=== PATIENT | male | born 2000 | race Caucasian/White ===

== ENCOUNTER 2023-11-28 09:29 | Outpatient (RCR) | payer BC, SELFPAY ==
--- NOTE | 2023-11-28 09:01 | BH.SGPN.GN ---
Behaviors/Verbalizations/Mental Status: [] Pt casually dressed, motor activity appropriate, speech normal rate and tone, mood euthymic and anxious, congruent affect, thoughts linear and intact, no evidence of delusions or hallucinations. Per daily symptom tracker client identified a 4/5, with 5 being severe, for suicidal thoughts and a 0/5 for suicidal intention. [place] Suicide Severity Rating Scale was completed with client and lethality assessed this morning. Does not appear to be imminent risk to harm self or others. Client Response/Progress/Benefit: [] Client appeared to listen attentively to others and sharing openly with group. Per daily sympton tracker client reports 3/5 for anxiety and 1/5 for depression. Client reported mental health positive as showing up to IOP today for his first day. Client stated additional positive as starting to get back into working out which has been helpful for him in the past. Client stated current stressor is struggling with trying to decrease his nicotine use since he stopped taking his ADHD medications. Appeared to benefit from support from peers. Will continue IOP tx to improve daily functioning, increase healthy coping skills, and prevent decompensation.
--- NOTE | 2023-11-28 10:10 | BH.SGPN.GN ---
Behaviors/Verbalizations/Mental Status: [] Eye contact is good. Motor activity is appropriate. Appearance is casual. Speech is Appropriate. Mood is anxious. Affect is congruent. Thoughts are linear and logical. No evidence of psychosis. Client Response/Progress/Benefit: [] Pt participated at times. Attentive. Participated in and was engaged during experiential activity. Able to relate experiential activity to group topic of FOF. Engaged during interactive discussion on what failure means to the group in which peers identified and defined failure and Fear of Failure. Group was able to identify impact of fear of failure on mental health identifying that it can cause procrastination, avoidance, self-sabotage behaviors, etc. Attentive during interactive discussion on the impact that FOF can have on mental wellness, depression, anxiety, career, relationships, and growth. Benefited from increased awareness of how the role that FOF plays in mental health and decision-making. Will continue in IOP prevent decompensation, stabilize mood, and increase healthy coping. Narrative Note: []
--- NOTE | 2023-11-28 11:08 | BH.SGPN.GN ---
Behaviors/Verbalizations/Mental Status: []Pt alert and oriented, neatly dressed and groomed. Eye contact good. Motor activity appropriate. Speech within normal limits. Affect congruent, mood euthymic. Thoughts linear, logical, no signs of hallucinations or delusions. Client Response/Progress/Benefit: []Pt responded well to session, engaged in the experiential activity and attentive throughout group processing. Pt reported fear of failure has kept pt from personal development, healthy relationships, and self-gratification. Pt completed fear of failure worksheet and was able to identify thoughts and behaviors that reinforce personal fear of failure including negative people, unrealistic expectations, and negative self-talk. Pt participated in group discussion regarding strategies to overcome fear of failure. Identified wanting to work on using SMART goals. Appeared to benefit from increased knowledge of strategies to combat fear of failure and gaining self-awareness. Pt will continue IOP tx to prevent decompensation, improve daily functioning, and gain healthy coping skills. Narrative Note: []
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
--- NOTE | 2023-11-28 13:45 | BH.MTP ---
Master Treatment Plan Patient Information Program Physician:: Dr. Sil Nelson Primary Therapist:: Ileana PRICE Psychiatric Diagnoses Psychiatric Diagnoses:: Major depressive disorder, recurrent, severe without psychosis F 33.2; OCD; ADHD; Borderline personality disorder; Nicotine use disorder; marijuana use disorder; History of stimulant use disorder Diagnosis Code(s):: F 33.2 Estimated LOS Estimated LOS (in weeks):: 6 Problem/Goal #1 Problem/Goal #1 Stated Goal:: Pt will decrease depressive symptoms, hopelessness, worthlessness, negative self-talk, and suicidal ideations. Description of Barriers: Pt has history of erratic moods and inability to maintain employment due to his mental health symptoms. Pt has been there numerous hardships and trauma in his life. Pt does not have currently have a therapist and he has not responded well to medications in the past. Pt has limited supports and reports he knows coping skills, but has difficulty implementing them. Functional Impact: Pt is a 23 year-old male with history of OCD, ADHD, MDD, and BPD who was referred to [facility] by Dr. Jones due to I can't keep a job. Pt currently endorses a depressed mood, hopelessness, irritability, erratic moods, chronic SI, negative thoughts of self, and racing thoughts. Pt reports that his thoughts are always racing and I can never have peace. Pt also reports numbness and dissociation. Pt's symptoms are impacting his ability to maintain employment, his relationships, and his every day functioning. Goal Relevant Strengths/Supports: Pt's daughter is his biggest protective factor, pt has outpatient psychiatry, and his employer is accommodating. Objectives Objective #1: Stated Objective: Pt will learn and utilize 2-3 healthy coping strategies to better manage depressive symptoms and reduce frequency of SI as shown by a decrease of DMS-5 symptoms for depression. Interventions: Through group and individual sessions, therapist will help pt identify triggers and warning signs of depression and guilt including emotional, physical, and behavioral changes. Therapist will teach pt various coping skills to manage symptoms and give pt tangible resources to use to regulate emotions. Therapist will use cognitive restructuring techniques and help pt gain awareness of negative thoughts that reinforce guilt and depression. Therapist will provide psychoeducation on maintenance cycles and help pt learn ways to break unhealthy maintenance cycles. Therapist will help pt incorporate behavioral activation and assist pt in setting SMART goals. Discharge Criteria: Pt will have met this goal when can report learning and using at least 2 coping skills to manage depressive symptoms and reduce isolation. Additionally, pt will have met this goal when pt's DSM-5 scores for depression decrease. Target Date: 01/09/24 Review Date: 12/19/23 Status: open Objective #2: Stated Objective: Pt will identify 2 triggers and 2 coping skills to use when pt experiences mood dysregulation and has increased urges to engage in unhealthy, impulsive coping skills. Interventions: Through individual and group counseling pt will be provided with education on healthy coping skills to manage mood symptoms, impulse, and crisis behaviors. Therapist will provide information on healthy alternatives to emotion release. Individual therapist will teach pt DBT techniques to increase emotional regulation and mindfulness. Therapist will also engage pt to use self-compassion while working to change behaviors. Discharge Criteria: Pt will have accomplished this goal when pt can identify at least 2 triggers and 2 coping skills to increase mood stability and reduce unhealthy action urges. Target Date: 01/09/24 Review Date: 12/19/23 Status: open Problem/Goal #2 Problem/Goal #2 Stated Goal:: Will reduce anxiety and panic symptoms through increasing emotional regulation and distress tolerance skills. Description of Barriers: Pt has history of erratic moods and inability to maintain employment due to his mental health symptoms. Pt has been there numerous hardships and trauma in his life. Pt does not have currently have a therapist and he has not responded well to medications in the past. Pt has limited supports and reports he knows coping skills, but has difficulty implementing them. Functional Impact: Pt is a 23 year-old male with history of OCD, ADHD, MDD, and BPD who was referred to [facility] by Dr. Jones due to I can't keep a job. Pt currently endorses a depressed mood, hopelessness, irritability, erratic moods, chronic SI, negative thoughts of self, and racing thoughts. Pt reports that his thoughts are always racing and I can never have peace. Pt also reports numbness and dissociation. Pt's symptoms are impacting his ability to maintain employment, his relationships, and his every day functioning. Goal Relevant Strengths/Supports: Pt's daughter is his biggest protective factor, pt has outpatient psychiatry, and his employer is accommodating. Objectives Objective #1: Stated Objective: Pt will increase ability to manage stressors and anxiety by gaining 2-3 distress tolerance skills. Interventions: Through group and individual therapy, pt will learn various coping skills to help manage stress and anxiety. Therapist will utilize DBT distress tolerance skills to increase awareness and give pt tools to more effectively manage anxiety. Therapist will provide psychoeducation on emotional regulation and help pt identify unhealthy coping skills he wants to change. Discharge Criteria: Pt will have accomplished this goal when can report improved ability to manage stressors and identify at least 2 distress tolerance skills. Target Date: 01/09/24 Review Date: 12/19/23 Status: open Objective #2: Stated Objective: Pt will identify 2-3 anxiety and panic triggers and 2 coping skills to use when feeling anxious or overwhelmed to manage anxiety as shown by reducing DSM-5 scores for anxiety Interventions: Therapist will provide education on anxiety, avoidance behaviors, and maintenance cycles. Therapist will help pt explore personal symptoms and warning signs of anxiety and irritability. Therapist will teach pt coping skills to improve emotional regulation, mindfulness, and distress tolerance to help pt cope with anxiety in the moment. Discharge Criteria: Pt will have accomplished this goal when he can identify at least 2 triggers and report using 2 coping skills to manage anxiety and irritability. Additionally, pt will have accomplished this goal AEB reduction of DSM-5 scores for anxiety. Target Date: 01/09/24 Review Date: 12/19/23 Status: open
--- NOTE | 2023-11-28 13:57 | BH.COMM_ITS ---
Communication Note Communication with Client Communication Note: Met with pt to complete initial paperwork and administer the CSSR-S screening and risk assessment. Pt is high risk as pt reports chronic SI with history of self-harm and a self-aborted attempt in the past. Pt does have passive SI today, but does not have plan or intent. Pt states he has ?come close? to suicide attempts in the past, but he stops himself. Reports ability to maintain safety and does not have access to pills or weapons. Pt lives with his grandparents, and he reports he will not act on his thoughts because of his daughter. Discussed case with Dr. Nelson and pt will be admitted to [facility] tx with a diagnosis of MDD F33.2 Pt and therapist also discussed treatment goals and began the psychosocial assessment.
--- NOTE | 2023-11-30 10:30 | BH.NA ---
Physical Data Vital Signs Pulse Rate: 91 Blood Pressure: 138/85 Height/Weight Height: 1.78 m Weight:: 74.843 kg Weight in Pounds: 165.0 lbs Nutritional History Appetite Nutritional Instructions: Describe your appetite:: Good Additional nutritional information:: Client states he had lost weight while on Mydayis, but states he has gained some weight now that he has been off of it a few weeks. Client denies change in appetite. Functional Assessment Sleep Pattern Describe any problems with sleeping: Client states he sleeps about 6-8 hours. Sensory/Communication Assess Vision Problems Do you have any vision problems?: None (client has a hx of corrective eye muscle surgery, but states it failed. Client states his eyes don't work together and he only uses 1 eye at a time, so he usually has 1 eye closed.) Medical Problems/History Respiratory Conditions Respiratory: Asthma (history of activity asthma, does not have a rescue inhaler and states he hasn't needed one in years) Gastrointestinal Conditions Gastrointestinal: Other (See comments) (GERD) Musculoskeletal Conditions Musculoskeletal: Arthritis (mostly in hands/wrists) Pain Assessment Do you have acute or chronic pain?: Yes (some in joints from arthritis) Family History Family History Mother Alcoholism Osteoarthritis Liver cirrhosis Depression Anxiety Suicide attempt Irritable bowel Anemia Arthritis Kidney disease Father Hypertension Alcoholism Drug use Schizophrenia ADHD Anxiety Depression Arthritis Grandfather Diabetes Anxiety OCD (obsessive compulsive disorder) Brother Asthma Learning disabilities Grandmother Cancer ? ovarian Additional History Additional comments:: tinnitus in both ears, vision problems Surgical History Surgical History Have you had any surgeries? If so, list type and date:: Yes (eye, sinus) Substance Abuse Substance Abuse Please describe substance abuse in the last 30 days:: Client states he drinks occasionally socially, but states it is around once a month or so. Client states he used to smoke cigarettes and used to vape, but now he uses Zyn, a synthetic nicotine pouch that has sugar in it and dissolves in your mouth. Client states he smokes marijuana several times per day, but states he does use it less in a day than he used to. Client states it helps with his anxiety and helps him be more social with people. Client states he usually drinks 2 energy drinks per day or a pre-workout with caffeine on days he works out, about 300-400mg daily. Mental Status Summary Mental Status Significant Findings/Observations on Appearance and Mood:: Client is alert and oriented x 4. Client is casually groomed. Client is cooperative with assessment. Client wears sunglasses in group, but does take off sunglasses for assessment. Client states he only uses one eye at a time, so during assessment he alternates which of his eyes he closes. Client's voice has normal rate and volume. Client has an appropriate affect. Client makes logical associations and has normal processing. Client denies delusions/hallucinations. Client reports some passive SI, sometimes with thoughts of methods but states his daughter is a strong protective factor. Suicide Assessment Suicidal Ideation Are you currently or have you been suicidal in the past?: Yes Suicidal Intentional Rating Scale (SIRS): Current suicidal thoughts/No plan/Contracts for safety (passive SI several times per week) Physician Notification Past Psychiatric History MH Treatment Hx Past Psychiatric Medications:: Zoloft, Risperdal, Concerta, Vyvanse, Focalin Age of first mental health symptoms: Client states he has been on medications for his ADHD since age 5-6, and was on them consistently through school. Client recently stopped taking Mydayis. Client states he was diagnosed with OCD around age 9-10. Client was in therapy consistently from age 4 to around 14 when he states he started to refuse to go. Describe (age, circumstance, etc) any past hospitalizations: 2019 for SI. Client denies any suicide attempts in the past. Fall Risk Assessment Age Age: Less than 60 Mental Status Mental Status: Willing & able to ask for assistance when needed Physical Status Physical Status: No problems Impairments Impairments: None Elimination Elimination: Continent AND independent Gait or Balance Gait or Balance: Walks independently Hx of Falls History of falls in the past 6 months: No known history Medications/Substances Medications/substances used within the past 24 hours or ordered to administer: None of the medications/substances list above Total Score Total Points:: 0 RN Summary of Impressions Impressions Recommendations Impressions: Psychiatric Issues: 1. Major depressive disorder, recurrent, severe without psychosis 2. OCD 3. ADHD 4. Borderline personality disorder 5. Nicotine use disorder 6. marijuana use disorder 7. History of stimulant use disorder Level of Care How do the client's current symptoms and functional deficits support need for this level of care?: Client was referred to [facility] by outpatient psychiatry due to client's mental health. Client states he has not been able to keep a job, and states he has gotten mad at some of his jobs and just walked out on the spot. Client states he has visits with his 5 year old daughter on the weekends, but states he feels like sometimes he's just going through the motions with her trying to be a better dad than I have. Client states I think my BPD makes it hard for me to have a relationship with her sometimes. Client states he's trying to feel more of a connection with her, and states he thinks this is improving. Client reports racing thoughts at times and anhedonia. Client does have passive SI at times, and sometimes has thoughts of methods (thoughts of hanging himself with a rope he found in the basement, thoughts of crashing his car when driving) but states his daughter is a strong protective factor. IOP will promote gains and prevent further decompensation while providing social support and skills training.
[2023-11-30 11:00] VITALS: BP 138/85; PULSE 91
--- NOTE | 2023-11-30 11:10 | BH.SGPN.GN ---
Behaviors/Verbalizations/Mental Status: [] Client alert and oriented, casually dressed and groomed. Eye contact could not be assessed due to client wearing sunglasses. Motor activity appropriate. Speech within normal limits. Affect constricted, mood anxious. Thoughts linear, logical, no signs of hallucinations or delusions. Client Response/Progress/Benefit: [] Client responded well to session, engaged and taking notes throughout. Worked with group to connect components of the experiential activity with characteristics of healthy and unhealthy relationships. Attentive during psychoeducation about characteristics of healthy, unhealthy, and abusive relationships. Client reported he would like to continue to improve with trusting self and others as a way to improve relationships. Appeared to benefit from identifying current healthy relationship attributes and an area client wants to work on to build healthier relationships. Client to continue IOP to increase healthy coping skills, challenge distortions, and prevent decompensation.
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
--- NOTE | 2023-11-30 12:38 | BH.DR.ITP ---
Initial Treatment Plan Patient Information Visit Information: ADMISSION DATE: EXPECTED LOS: 4-6 weeks Problems/Symptoms Problem #1:: Depression Symptom:: Sadness, hopelessness, guilt, anhedonia, disruption of sleep, low energy, decreased concentration, passive thoughts of , passive, fleeting suicidal ideation Problem #2:: Anxiety Symptom:: Worry, rumination, avoidance
--- NOTE | 2023-12-01 10:10 | BH.SGPN.GN ---
Behaviors/Verbalizations/Mental Status: []Pt alert and oriented, casually dressed and groomed. Eye contact good. Motor activity appropriate. Speech within normal limits. Affect congruent, mood depressed and anxious. Thoughts linear, logical, no signs of hallucinations or delusions. Client Response/Progress/Benefit: [] Pt was an active?participant in group discussion identifying benefits of healthy relationships which included improved connections, accountability, and personal growth. Group identified factors that lead to unhealthy relationships. Pt?s personal factors included poor communication, irritability, and poor mental health. Actively participated in group experiential activity and expressed ideas to group. Benefited from increased insight and awareness of benefits of healthy relationships and factors that contribute to unhealthy relationships. Will continue IOP tx to promote mood stability, increase self-care practices, and improve daily functioning. Narrative Note: []
--- NOTE | 2023-12-06 10:15 | BH.SGPN.GN ---
Behaviors/Verbalizations/Mental Status: []Eye contact is good. Motor activity is appropriate. Appearance is casual. Speech is Appropriate. Mood is euthymic. Affect is congruent. Thoughts are linear and logical. No evidence of psychosis. Client Response/Progress/Benefit: [] Pt was actively engaged, providing input at times, and taking notes throughout session. Connected with the topic of pitfalls and listened to group discussion on internal and external barriers that prevent from choosing a healthier path to mental wellness. Group worked together to identify examples of personal internal pitfalls and pt identified theirs as using unhealthy coping skills, lashing out, and all or nothing thinking. Pt benefited from group as pt learned to better identify and normalize potential barriers to improving mental health symptoms. Pt also gained awareness of the difference between external triggers and self-sabotaging behaviors. Will continue in IOP to prevent decompensation, improve daily functioning, and increase distress tolerance skills. Narrative Note: []
--- NOTE | 2023-12-06 11:15 | BH.SGPN.GN ---
Behaviors/Verbalizations/Mental Status: []Pt alert and oriented, casually dressed and groomed. Eye contact good. Motor activity appropriate. Speech within normal limits. Affect congruent, mood euthymic. Thoughts linear, logical, no signs of hallucinations or delusions. Client Response/Progress/Benefit: [] Pt receptive of session, engaged throughout AEB actively contributing and listening to discussion, as well as taking notes. Pt participated in the experiential activity and processed with group how their emotions, perspective, and reactions positively and negatively impacted the outcome. Pt identified pitfalls they struggle with and shared wanting to work on pitfall of lack of negative self-talk by practicing reflecting on progress and identifying small positives daily. Benefited from identifying personal pitfalls and strategies to overcome these pitfalls. Will continue IOP tx to prevent decompensation, further improve daily functioning and mood stability, and promote application of healthy coping skills. Narrative Note: []
--- NOTE | 2023-12-06 11:37 | BH.MDN ---
Multi-Disciplinary Note Note 45-min Individual: Time Started:: 09:15 Date: 12/06/23 Purpose of session/treatment goals addressed:: To gather information on pt's current stressors, symptoms, triggers, history, and tx goals. Another goal was to teach pt about dialectical thinking to combat distortions and regulate strong emotions. Eye Contact:: Fair (wearing sunglasses) Motor Activity:: Appropriate Appearance:: Neat Speech:: Appropriate Mood:: Irritable, Depressed and Other (motivated and more hopeful by the end of session.) Affect:: Constricted Thoughts:: Racing and No evidence of hallucinations/delusions noted Staff Interventions:: thought challenging, CBT techniques, mindfulness skills, rapport building, strengths perspective and taught coping skills (dialectical thinking) Client Response:: Pt responded well to session, open to meeting with therapist. Pt reported that he canceled last week because he could not bring himself to get out of bed which pt shared feels like that's happening more and more. Pt stated he is feeling depressed, hopeless, and angry this morning. Pt did not identify a specific trigger, but pt shared most of these feelings are geared toward work and the world being shitty. Pt talked about how he wants to make a difference in the world and when he has the motivation, he feels this is possible. However, when pt's mood is depressed, pt feels that there is nothing that can be done to make the world better, so why try. This leads pt to isolate, quit jobs, and self-destruct. Pt responded well to validation from therapist and thought challenging. Pt appeared to benefit from the skill of dialectical thinking to help pt find the michael in life and combat all or nothing beliefs and thoughts. Pt was able to make connections that he will not change the entire world and he can change his part of the world. Pt gained insight on how this can be done; through actions, kindness, etc. Pt also responded well to discussion on focusing on the temporary. Pt has not enjoyed any of his jobs as pt feels his virtues do not align, so pt can temporarily work at a job he does not enjoy while working towards finding something he enjoys more. Discussed pt's other values/virtues and how these can aid pt in his mental health journey. Pt shared today it would be helpful to go to the store and get his car scraped. Pt also feels he can benefit from spending time with his family instead of isolating. By the end of session pt was smiling and noted he felt motivated. Risks/Concerns:: Pt denies any active SI, plan, or intent. Pt is more irritable today and hopeless, but by the end of session pt reported feeling better. Progress Toward Goals/Plan:: Pt is starting the second week of IOP tx. Pt admits that he canceled last week once due to depressive symptoms. Today pt endorses hopelessness and irritability that pt did not report last week. Pt's mood did shift during session and he reported feeling more motivated. Pt shared that he has a lot of knowledge about coping skills, but he struggles with applying the skills. Will continue IOP tx to prevent decompensation, improve distress tolerance skills, and improve daily functioning. Time Stopped:: 10:00
--- NOTE | 2023-12-08 09:01 | BH.SGPN.GN ---
Behaviors/Verbalizations/Mental Status: [] Eye contact is unable to be assessed due to client wearing sunglasses. Motor activity is appropriate. Appearance is casual. Speech is Appropriate. Mood is euthymic. Affect is congruent. Thoughts are linear and logical. No evidence of psychosis. Reviewed daily check in sheet and no reports of suicidal ideations or intent. Client Response/Progress/Benefit: [] Pt was an engaged participant in group discussion. Attentive. Pt reported mental health positive as working out this morning which tends to make him feel better. Pt stated additional positive as starting to improve balance between daily routine and structure. Pt shared he got a large calendar to post up that he can write down his plan each week, including chores. Pt stated ongoing stressor as needing to make decision about what he wants to do about his eyes. Stated he could have surgery to fix his lazy eye, but there are possible complications that would be similar to what he is alerady experiencing. Seemed to benefit from support from peers. Pt to continue IOP to promote healthy coping, improve distress tolerance, and prevent decompensation.
--- NOTE | 2023-12-08 11:15 | BH.SGPN.GN ---
Behaviors/Verbalizations/Mental Status: [] Eye contact is good. Motor activity is appropriate. Appearance is casual. Speech is Appropriate. Mood is content. Affect is congruent. Thoughts are linear and logical. No evidence of psychosis. Client Response/Progress/Benefit: [] Pt was an active participant in group discussions and activity. Engaged with peers in activity and identifying healthy ways to approach each conflict scenario. Group discussed various conflict resolution skills that can be useful in addressing conflict outside of IOP. Benefited from practicing and learning conflict resolution skills during group activity. Able to identify areas pt wants to work on to improve how pt manages conflict both internally and externally. Expressed wanting to work on taking a time-out if becoming heated when addressing external conflict. Will continue in IOP to stabilize mood, improve functioning in daily life, and prevent decompensation. Narrative Note: []
--- NOTE | 2023-12-09 10:10 | BH.SGPN.GN ---
Behaviors/Verbalizations/Mental Status: [] Eye contact is good. Motor activity is appropriate. Appearance is casual. Speech is Appropriate. Mood is euthymic. Affect is full. Thoughts are linear and logical. No evidence of psychosis. Client Response/Progress/Benefit: [] Pt an active participant in group discussions. Participated during interactive discussion on defining conflict (internal/external) and possible benefits to conflict. Attentive during psychoeducation on conflict styles (Avoidant, Accommodating, Competing, Cooperative) and engaged during interactive discussion in which peers identified the benefits and consequences to each conflict style. Pt identified their primary conflict style as competing. Benefited from increased awareness of the impact of conflict styles in mental health. Will continue in IOP tx to prevent decompensation, stabilize mood, and improve functioning to return to work. . Narrative Note: []
== END 2023-12-09 23:59 ==
LOC: BHIOP 09:29
PROVIDERS: PCP Internal Medicine; Referring Provider Psychiatry & Neurology Psychiatry; Visit Provider Psychiatry & Neurology Psychiatry
DX: F33.1 Major depressive disorder, recurrent, moderate (principal); F42.9 Obsessive-compulsive disorder, unspecified; F90.9 Attention-deficit hyperactivity disorder, unspecified type; F60.3 Borderline personality disorder; F17.210 Nicotine dependence, cigarettes, uncomplicated; F12.90 Cannabis use, unspecified, uncomplicated; Z79.899 Other long term (current) drug therapy
CPT/HCPCS: S9480; 90834; 90853

== ENCOUNTER 2023-12-12 08:12 | Outpatient (RCR) | payer BC, SELFPAY ==
[2023-12-10 02:40] VITALS: BP 138/85; PULSE 91
--- NOTE | 2023-12-13 09:00 | BH.SGPN.GN ---
Behaviors/Verbalizations/Mental Status: [] Eye contact good. Motor activity appropriate. Speech within normal limits. Affect congruent, mood content. Thoughts linear, logical, no signs of hallucinations or delusions. Reviewed client?s symptom tracker, denies SI, plan, or intent as of 12/13/2023. Client Response/Progress/Benefit: [] Client receptive of session, attentive and willing to process with group. Identified mental health ?wins? today as making an intentional effort to get here today despite wanting to remain in bed. Reports using opposite action and reminding himself of the benefits of coming. Additional win noted as spending time playing with his daughter over the weekend and being present while doing so. Reports that quality time with her often improves his mood and reminds him to practice daily gratitude. Current stressor noted as ongoing issues with pain associate with pt's arthritis. Did well to identify strategies he can use to accept and ease his pain today. Receptive of and appearing to benefit from supportive feedback and suggestions provided by the group. Recommended continued IOP tx to continue to improve mood stability, promote consistency of skill application and emotion regulation, as well as prevent decompensation. Narrative Note: []
--- NOTE | 2023-12-13 10:00 | BH.SGPN.GN ---
Behaviors/Verbalizations/Mental Status: [] Eye contact is good. Motor activity is appropriate. Appearance is casual. Speech is Appropriate. Mood is anxious. Affect is congruent. Thoughts are linear and logical. No evidence of psychosis. Client Response/Progress/Benefit: [] Pt was an active participant in group discussions. Attentive during psychoeducation on the 4 communication styles (Passive, Passive-Aggressive, Aggressive, and Assertive) and the obstacles to effective communication. Contributed during interactive discussion on the benefits of communicating effectively. Along with peers participated during interactive discussion in which they identified the benefits and disadvantages to the different communication styles. Benefited from increased understanding of communication styles and how these can impact effective communication. Will continue in IOP to prevent decompensation, improve mood stability, and improve functioning to return to work.
--- NOTE | 2023-12-13 11:05 | BH.SGPN.GN ---
Behaviors/Verbalizations/Mental Status: []Pt alert and oriented, casually dressed. Eye contact good. Motor activity appropriate. Speech within normal limits. Affect congruent, mood euthymic. Thoughts linear, logical, no signs of hallucinations or delusions. Client Response/Progress/Benefit: [] Pt responded well to session AEB Pt listening attentively to others and providing input during group discussion on the pay offs and costs of the different communication styles. Pt able to connect how current communication style impacts mental health. Connected with peers? comments about importance of using assertive communication. Pt did well being assertive in the group activity and practiced using assertive communication in the role playing scenarios. Pt stated the scenarios were good practice because he can sometimes come off too aggressive to others. Recognizes he needs to be mindful how he is communicating when trying to be assertive.?Pt seemed to benefit from increasing awareness of healthy strategies to improve communication. Will continue IOP tx to challenge distortions, improve emotion regulation, and prevent decompensation.
--- NOTE | 2023-12-14 09:05 | BH.SGPN.GN ---
Behaviors/Verbalizations/Mental Status: [] Pt alert and oriented, neatly dressed and groomed. Eye contact good. Motor activity appropriate. Speech tangential. Affect congruent, mood euthymic. Thoughts linear, logical, no signs of hallucinations or delusions. Reviewed pt?s symptom tracker, no risk for suicidal ideation, plan, or intent 12/14/23 Client Response/Progress/Benefit: []Pt responded well to session, attentive and engaged. Pt reports feeling mixed this morning as pt has many mental health wins, but he also has a major stressor. Pt shared his wins today as getting to IOP, working out this morning, and being consistent with his protein intake and food plan. Pt's stressor today is that pt recently found out his brother who struggles with addiction recently overdosed again. Pt stated his brother is alive, but in the hospital and pt feels frustrated because he does this all the time. The group offered support and reinforced boundaries. Pt appeared to benefit from receiving supportive statements from peers. Pt will continue IOP tx to promote mood stability, increase emotional regulation skills, and improve daily functioning. Narrative Note: []
--- NOTE | 2023-12-14 10:15 | BH.SGPN.GN ---
Behaviors/Verbalizations/Mental Status: [] Eye contact is good. Motor activity is appropriate. Appearance is casual. Speech is Appropriate. Mood is anxious and content. Affect is congruent. Thoughts are linear and logical. No evidence of psychosis. Client Response/Progress/Benefit: [] Pt receptive of session, actively engaged throughout AEB taking notes, providing input, and contributing in small group discussion. Appeared to connect with group topic of automatic thoughts and cognitive distortions and the impact of thought patterns on mental health, coping behaviors, and relationships. This particular group is very heavy on psychoeducation and pt appeared to connect with distortions and how they can impact functioning. Identified struggling with All or nothing and jumping to conclusions distortions. Pt appeared to benefit from gaining insight on distorted thinking patterns and how this impacts overall mental health. Will continue IOP to stabilize mood, improve distress tolerance, and prevent decompensation. Narrative Note: []
--- NOTE | 2023-12-14 12:05 | PCM.BH.PN_ITS ---
Progress Note Progress Note: History of Present Illness/Interim History: The patient is a 23-year-old single male with a history of OCD, depression, borderline personality disorder, ADHD who is seen in follow-up at the [facility] behavioral health [facility]. I last saw the patient 2 weeks ago and at that time he refused any medication. The patient feels he is really benefiting from the groups at the [facility] and feels that he is improving. He continues to struggle with his purpose in life and with working at his job. Patient states that his mood is less depressed and he feels more motivated lately. He denies any hopelessness. He has decreased his energy drink use to one half can a day only now. He hopes to eliminate them soon. He has decreased his nicotine use down to 5 pouches a day instead of 5-8 pouches and is trying not to use them in the evening. He is to decrease his marijuana use to the point where he still uses marijuana daily but sometimes its only in the evening instead of being high all the time. He still has occasional sadness but denies hopelessness. He continues to try to exercise regularly. He denies any passive thoughts of or suicidal ideation in the past week or 2 except for 1 moment of fleeting, passive suicidal ideation 10 days ago. He is again states that his daughter is protective from him attempting suicide. He denies active suicidal ideation, plan for suicide, homicidal ideation, hallucinations or delusions. Current Psychiatric Medications: [] The patient stopped his stimulant medication (Mydayis ER) and is not interested in any medication treatment. Mental Status Examination: [] Patient is a 23-year-old male who appears normal for stated age and is casually dressed and groomed with good hygiene. He is seen wearing sunglasses as he has double vision and has to squint in order to see clearly and is embarrassed by this. He is ambulatory with a normal gait and has no psychomotor agitation or retardation. He is cooperative and pleasant during the interview. Eye contact is good as much as can be seen with sunglasses and speech is normal rate and rhythm and fluent with no pressure. Mood is moderately depressed. Affect is mildly constricted. Thought process is goal-directed and less overinclusive than the prior interview. Thought content: There is no evidence of passive thoughts of , suicidal ideation, plan for suicide, homicidal ideation, hallucinations, delusions. There is evidence of chronic mistrust of girlfriends and coworkers still. Reality testing is intact. Judgment is intact. Insight: Limited but improving. Diagnoses: [] 1. Major depressive disorder, recurrent, moderate 2. OCD 3. ADHD 4. Borderline personality disorder 5. Nicotine use disorder 6. Marijuana use disorder 7. History of stimulant use disorder Plan: [] The patient will continue the IOP in behavioral health as the struc ture, support, education and group therapy will hopefully prevent worsening of the patient's symptoms which could require hospitalization. He felt safe during the interview and if it anytime he does not feel safe he agrees to let us know or go to the emergency room. The patient still refuses to take any medications. He also refuses to get his blood work as he has not obtained it and wants to cancel it. He does agree to continue to attempt to decrease his nicotine use, decrease his marijuana use and decreasing eliminate his caffeine use. He will continue to follow-up with his outpatient providers and I will see the patient in follow-up while he is in the IOP program.
--- NOTE | 2023-12-19 09:00 | BH.SGPN.GN ---
Behaviors/Verbalizations/Mental Status: [] Client alert and oriented, casual appearance. Eye could not be assessed as client was wearing sunglasses. Motor activity appropriate. Speech within normal limits. Affect congruent, mood euthymic. Thoughts linear, logical, no signs of hallucinations or delusions. Reviewed client?s symptom tracker, no risk for suicidal ideation, plan, or intent. Client Response/Progress/Benefit: [] Client responded well to session AEB listening to others and sharing thoughts/feelings. Client stated mental health positive as showing up to IOP today. Client reported additional mental health positive as keeping up with his workouts even when not feeling up to it. Client stated current stressor is only getting three hours of sleep last night. Client reported his sleep tends to be a struggle for him due to his history of being on various kinds of work shifts that got him accustomed to staying up late. Appeared to benefit from support from peers. Will continue IOP tx to promote use of healthy coping skills, improve distress tolerance, and prevent decompensation.
--- NOTE | 2023-12-19 10:10 | BH.SGPN.GN ---
Behaviors/Verbalizations/Mental Status: [] Eye contact is good. Motor activity is appropriate. Appearance is casual. Speech is Appropriate. Mood is content. Affect is congruent. Thoughts are linear and logical. No evidence of psychosis. Client Response/Progress/Benefit: [] Pt receptive to session AEB contributing to group discussion, as well as listening attentively to others, and taking notes. Worked with group to brainstorm the positive and negative aspects of stress on physical and mental health as well as the impact of distress on performance, relationships, and mental health. Pt shared their top stressors to be: parenting, finances, returning to work, and self-image issues. Shared when feeling overwhelmed with stress they tend to shut down, freeze, and lash out. Benefited from increased awareness of positive and negative stress as well as how stress impacts mental health and relationships. Will continue in IOP to promote utilization of distress tolerance skills, improve emotion regulation and positive view of self, and prevent decompensation. Narrative Note: []
--- NOTE | 2023-12-19 11:10 | BH.SGPN.GN ---
Behaviors/Verbalizations/Mental Status: []Pt alert and oriented, casually dressed and groomed. Eye contact good. Motor activity appropriate. Speech within normal limits. Affect congruent, mood euthymic. Thoughts linear, logical, no signs of hallucinations or delusions. Client Response/Progress/Benefit: [] Pt was an active participant in group discussions and experiential activity. Attentive during psychoeducation on the 4 A's (Avoid, adapt, alter, accept) of coping with stress. Pt wants to work on altering his perspective towards stressors and adapting his expectations. Was able to identify the connection between the experiential activity and utilization of stress management skills. Benefited from increased awareness of stress management strategies. Pt will continue IOP tx to promote mood stability, increase distress tolerance skills, and improve work-related functioning. Narrative Note: []
--- NOTE | 2023-12-19 13:20 | BH.MDN_ITS ---
Multi-Disciplinary Note Note 30-min Individual: Time Started:: 12:10 Date: 12/19/23 Purpose of session/treatment goals addressed:: To discuss progress, return to work, and set goals for today. Eye Contact:: Good (wears sunglasses) Motor Activity:: Appropriate Appearance:: Neat Speech:: Appropriate and Rambling Mood:: Euthymic Affect:: Full Thoughts:: Racing and No evidence of hallucinations/delusions noted Staff Interventions:: thought challenging, CBT techniques, mindfulness skills, strengths perspective, goal setting and other (discussed returning to work on a reduced schedule.) Client Response:: Pt responded well to session, open to meeting with therapist. Pt reports he has been noticing a difference in his perspective in a positive way. Pt shared after having the individual session where pt was highly agitated, pt felt he took what was talked about and applied it. Pt shared he has been isolating less and trying to engage more with his grandparents which has been positive. Pt also had his daughter this weekend and he reports feeling tiffany again while spending time with her. Pt is looking forward to things again including his sister coming to visit and returning to work. Pt reports the biggest change has been his thought challenging. Pt continues to smoke marijuana daily and he has ongoing sleep issues. Pt reports belief that his sleep hygiene is good and he feels he can function on less than 8 hours of sleep. However, pt also shared that in the past his lack of sleep has led to decompensation and burnout at work. Pt encouraged to practice calming skills at night as pt currently does not. Pt also encouraged to keep up with exercise, spending time with family, and challenging his perspective. Risks/Concerns:: Pt denies any suicidal ideations, plan, or intent as of 12/19/23. Pt reports on the DSM-5 that he has not have suicidal ideations in the last two weeks. Progress Toward Goals/Plan:: Pt is making progress towards his tx goals AEB pt's DSM-5 scores reducing by 28% since admission. Pt's depressive has decreased by 71% since admission and SI has decreased by 100%. Pt shared he sees progress in his perspective becoming more positive about work and his improved relationship with his grandparents. Pt wants to continue working on reducing negative thinking, improving his emotional regulation, and continuing to improve functioning. Pt will continue IOP tx to promote mood stability, improve work- related functioning, and increase emotional regulation skills. Time Stopped:: 12:45
--- NOTE | 2023-12-19 13:45 | BH.TPR ---
Treatment Plan Review Demographics Date of Admission:: 11/28/23 Date of Treatment Plan Review:: 12/19/23 Admitting Diagnoses:: Major depressive disorder, recurrent, severe without psychosis F 33.2; OCD; ADHD; Borderline personality disorder; Nicotine use disorder; marijuana use disorder; History of stimulant use disorder Current Diagnoses:: Major depressive disorder, recurrent, severe without psychosis F 33.2; OCD; ADHD; Borderline personality disorder; Nicotine use disorder; marijuana use disorder; History of stimulant use disorder Patient Status Patient's Response to Treatment:: Pt has responded well to session AEB consistently attending IOP and engaging in both individual and group therapy sessions. Pt is receptive to challenging distortions and reports applying skills outside of IOP. Pt contributes during group discussions, takes notes, appears to listen to others, and engages in group activities. Pt does overshare at times during group, but overall he is a good participant. Pt's overall DSM-5 scores have decreased by 28% since admission. Status of Current Problems and Symptoms: Pt's symptoms of depression and anxiety are resolving, but pt still reports mood instability with fear that he will not be able to maintain progress. Pt's biggest stressor right now is sleep, anxiety and mood instability, and lack of social support. Pt's brother was also recently hospitalized due to an overdose and this is a stressor for pt. Progress Problem #1: Problem Name:: Depression, SI, and hopelessness. Status of Goals:: Objective 1-complete with ongoing work encouraged. Pt?s DSM-5 scores for depression have decreased by 71% and pt?s SI has decreased by 100% since admission. Pt reports improved mood and actively challenging his perspective. Objective 2-in progress. Pt reports less impulse reactions, but pt is also not in a highly stressful environment as pt is off work. Team Recommendations:: Team recommends continued goals and objectives to reinforce skills and maintain gains made. Team recommends pt continue working on combating distortions, being more self-compassionate, and setting realistic goals to prevent burnout. Problem #2: Problem Name:: Anxiety, panic, and low distress tolerance. Status of Goals:: Objective 1-in progress. See objective 2 above. Pt is managing emotions well currently and will continue to benefit from IOP as pt returns to work part-time starting in the next few weeks. Objective 2- complete with ongoing work encouraged. Pt?s DSM-5 scores for anxiety reduced by 22% since admission. Pt is still reporting moderate anxiety daily. Pt shared ?it feels like I have one good day one bad day. Team Recommendations:: Treatment team encourages pt to continue working on distress tolerance skills and delaying his responses before reacting. Pt also encouraged to increase his social activities and practice healthy sleep hygiene skills.
--- NOTE | 2023-12-21 09:03 | BH.SGPN.GN ---
Behaviors/Verbalizations/Mental Status: [] Eye contact good. Motor activity appropriate. Speech within normal limits. Affect congruent, mood euthymic. Thoughts linear, logical, no signs of hallucinations or delusions. Reviewed client?s symptom tracker, denies SI, plan, or intent as of 12/21/2023. Client Response/Progress/Benefit: [] Client receptive of session, attentive and willing to process with group. Identified mental health ?wins? today as making plans with his grandfather to buy his old car as client's car has been having issues. Reports feeling excited as well about his sister planning to visit this weekend from [place]. Reports this will be nice for the family to get together as it has been awhile. Client noted his current stressor is also a win as he is quitting nicotine and is proud of the progress he has made but that this has been stressful at times. Receptive of and appearing to benefit from supportive feedback and suggestions provided by the group. Recommended continued IOP tx to continue to improve mood stability, promote consistency of skill application and thought challenging, as well as prevent decompensation. Narrative Note: []
--- NOTE | 2023-12-21 10:15 | BH.SGPN.GN ---
Behaviors/Verbalizations/Mental Status: []Patient was alert and oriented, casually dressed and groomed. Eye contact was fair, motor activity normal, speech tangential. Affect congruent. mood euthymic. Thoughts linear, logical, no signs of hallucinations or delusion Client Response/Progress/Benefit: [] Pt participated in the group discussions AEB providing input and taking notes. Attentive during psychoeducation Goal Setting. Participated during the discussion on common barriers which the group identified as: lack of motivation, not knowing where to start, not feeling good enough, and lack of support. Group also identified benefits sense of purpose, improved self-confidence, more motivation for other goals, and improved mental health. Benefited from increased awareness of mental health benefits of goals as well as psychoeducation on SMART goal criteria. Will continue in IOP to improve mood stability, increase emotional regulation skills, and reduce impulsivity. Narrative Note: []
--- NOTE | 2023-12-21 11:15 | BH.SGPN.GN ---
Behaviors/Verbalizations/Mental Status: []Pt alert and oriented, casually dressed and groomed. Eye contact could not be assessed as client is wearing sunglasses during session. Motor activity appropriate. Speech within normal limits. Affect congruent, mood euthymic. Thoughts linear, logical, no signs of hallucinations or delusions. Client Response/Progress/Benefit: [] Pt was engaged during discussion and willing to complete the worksheet challenging them to develop a personal SMART goal. Pt chose the goal of maintaining a positive mind when returns to work. Pt stated this will help him retain employment. Pt stated potential barriers include: depression, exhaustion, self-image, and anxiety. Identified solutions as engaging in small self-care activities, grounding skills, and hanging out with friends and family. Benefited from this group by developing a short-term SMART goal related to mental health. Will continue IOP tx to continue working on distress tolerance, improve thought patterns, and prevent decompensation.
--- NOTE | 2023-12-30 11:58 | BH.COMM ---
Communication Note Communication with Client Communication Note: Pt cancelled his scheduled IOP group and individual session today and did not make it in for group this week. Pt recently went back to work part-time and pt shared he has been having difficulty getting to sleep. Pt and therapist will discuss attendance and plan of care next week when pt returns.
--- NOTE | 2024-01-05 10:33 | BH.COMM_ITS ---
Communication Note Communication with Client Communication Note: Pt no called/no showed for his IOP group and individual sessions today. Pt had called earlier this week to schedule for today and tomorrow. However, pt has not been to [facility] since 12/21/23 which was prior to going back to work part-time. Pt was reminded of the [facility] attendance policy last week when he cancelled his sessions and will be discharged at this time.
--- NOTE | 2024-01-05 10:37 | BH.DS ---
Discharge Summary Demographics Date of Admission:: 11/28/23 Discharge Date: 01/05/24 Presenting Problems at Admission:: Pt is a 23 year-old male with history of OCD, ADHD, MDD, and BPD who was referred to [facility] by Dr. Jones due to I can't keep a job. Pt currently endorses a depressed mood, hopelessness, irritability, erratic moods, chronic SI, negative thoughts of self, and racing thoughts. Pt reports that his thoughts are always racing and I can never have peace. Pt also reports numbness and dissociation. Pt's symptoms are impacting his ability to maintain employment, his relationships, and his every day functioning. Discharge Diagnoses:: Major depressive disorder, recurrent, severe without psychosis F 33.2; OCD; ADHD; Borderline personality disorder; Nicotine use disorder; marijuana use disorder; History of stimulant use disorder Reason for Discharge:: Pt had numerous cancelations resulting in discharge from [facility] for not adhering to the attendance policy. Treatment Progress During Treatment & Response: Pt discharged prior to completing [facility], so there is no DSM-5 data to compare pt's admission scores to discharge scores. However, at review, pt's depression and SI had decreased significantly (see treatment plan review). Pt's attendance had been mostly consistent, but then pt began canceling and pt had two weeks where he did not show to [facility] due to cancelations. When pt was at [facility] he was engaged and interacted with peers. Issues Still to be Addressed:: Pt can benefit from continuing to improve emotional regulation and interpersonal effectiveness skills which will help pt maintain relationships and employment. Discharge Recommendations/Instructions:: Pt will follow up with Dr. Jones for medication management through [facility] on 02/01/24. Discharge Handout
== END 2024-01-05 10:37 | disposition home or self-care (01) ==
LOC: BHIOP 08:12
PROVIDERS: PCP Internal Medicine; Referring Provider Psychiatry & Neurology Psychiatry; Visit Provider Psychiatry & Neurology Psychiatry
DX: F33.2 Major depressive disorder, recurrent severe without psychotic features (principal); F42.9 Obsessive-compulsive disorder, unspecified; F90.9 Attention-deficit hyperactivity disorder, unspecified type; F60.3 Borderline personality disorder; F17.200 Nicotine dependence, unspecified, uncomplicated; F12.90 Cannabis use, unspecified, uncomplicated; F15.91 Other stimulant use, unspecified, in remission; Z79.899 Other long term (current) drug therapy
CPT/HCPCS: S9480; 90832; 90853